=== PATIENT | female | born 1935 | race Caucasian/White ===

== ENCOUNTER 2020-06-01 13:58 | Inpatient (IN) | payer MEDICARE, SELFPAY ==
[~2020-06-01 13:58] MED LIST: Iopamidol 370 76% 100 ML VIAL ONE
[2020-06-01] MEDS ORDERED: Diltiazem 125 MG/25 ML ONE (14:27)
[2020-06-01 14:32] LABS: #Eosinphils 0.1 thou/uL (0.0-0.7); #Lymphocytes 1.6 thou/uL (1.20-3.40); #Monocytes 1.2 thou/uL (0.11-0.59); #Neutrophils 9.4 thou/uL (1.40-6.50); %Basophils 0.2 % (0.0-1.0); %Eosinophils 1.2 % (0.0-10.0); %Lymphocytes 12.6 % (21.0-51.0); %Monocytes 9.7 % (0.0-10.0); %Neutrophils 76.3 % (42.0-75.0); Hemoglobin 10.8 g/dL (12.0-16.0); Mean Corpuscular HGB CONC 32.8 g/dL (32.0-36.0); Mean Corpuscular Hemoglobin 29.5 pg (27.0-31.0); Mean Corpuscular Volume 89.9 fL (78.0-98.0); RBC Distribution Width 12.3 % (11.5-14.5); Red Blood Cell (RBC) Count 3.65 mill/uL (4.20-5.40); White Blood Cell (WBC) Count 12.3 thou/uL (4.8-10.8)
--- NOTE | 2020-06-01 14:49 | RAD ---
EXAM: Chest one view: HISTORY: Status post hip replacement, hypotensive, shortness of breath, history of atrial fib COMPARISON: 06/01/2020 FINDINGS: Very poor inspiration with right hemidiaphragm elevation more prominent than on prior earlier exam. Heart size: Within normal limits. Lungs: Clear of acute process. No evidence for confluent pneumonia, pleural effusion, acute edema, or pneumothorax, or other signifi cant acute process. IMPRESSION: No significant acute intrathoracic disease. Worsening inspiration otherwise stable.
[2020-06-01 14:54] LABS: MDiff Complete? YES; Mean Platelet Volume 11.3 fL (7.4-10.4); Platelet Clumps MODERATE; Platelet Morphology Comment PLT clumps seen-ADEQ; Polychromasia SLIGHT = 2-3 cells (100X) (0-2/hpf)
[2020-06-01] MEDS ORDERED: Metoclopramide HCl 10 MG/2 ML VIAL ONE (15:09)
[2020-06-01] MEDS ORDERED: diphenhydrAMINE 50 MG/ML VIAL ONE (15:10)
--- NOTE | 2020-06-01 15:17 | CT ---
EXAM: CT angiogram of the chest including 3-D rendering: HISTORY: Hypotensive shortness of breath COMPARISON: None FINDINGS: There is adequate opacification of the pulmonary arteries. Some generalized aortic ectasia involving the arch and descending aorta No convincing CT evidence for acute pulmonary embolism. Evidence for some bilateral bullous emphysema changes with some linear interstitial bilateral parench ymal changes particularly pleural-based changes with some minimal bilateral pleural thickening. No evidence for mediastinal mass or adenopathy. No evidence for pleural or pericardial effusion. Evidence for small hypertrophic partially visualized left kidney. Severe thoracic spine spondylosis IMPRESSION: No convincing CT evidence for acute pulmonary embolism. Evidence for some bullous emphysema changes and scattered linear and interstitial including pleural-b ased chronic appearing changes and some pleural thickening.
[2020-06-01] MEDS ORDERED: Magnesium 2 GM/50 ML BAG (IN WATER) ONE (15:33)
[2020-06-01 15:36] LABS: ALT (SGPT) 17 U/L (8-55); AST (SGOT) 17 U/L (5-34); Albumin 3.2 g/dL (3.4-4.8); Alkaline Phosphatase 105 U/L (40-110); Anion Gap 11 mmol/L (10-20); BUN (Urea Nitrogen) 26 mg/dL (9.8-20.1); Bilirubin, Total 0.9 mg/dL (0.2-1.2); Calc. Creatinine Clearance 0 mL/min (70-130); Calcium 8.3 mg/dL (7.8-10.44); Carbon Dioxide 27 mmol/L (23-31); Chloride 98 mmol/L (98-107); Estimated GFR-MDRD 29; Globulin 3.5 g/dL (2.4-3.5); Glucose 143 mg/dL (83-110); Potassium 4.5 mmol/L (3.5-5.1); Protein, Total 6.7 g/dL (6.0-8.3); Sodium 131 mmol/L (136-145)
[2020-06-01 15:38] LABS: CKMB 2.5 ng/mL (0-6.6)
[2020-06-01 16:05] LABS: INR-International Normal Ratio 1.1; PTT 37.6 sec (22.9-36.1); Prothrombin Time 13.8 sec (12.0-14.7)
[2020-06-01] MEDS ORDERED: Aspirin 325 MG TAB ONE ×2 (16:27→18:21)
[2020-06-01] MEDS ORDERED: Ondansetron PF 4 MG/2 ML Vial IVP PRN (16:45)
[2020-06-01] MEDS ORDERED: HYDROcodone/Acetaminophen 5/325 mg Tablet PO SCH (18:00)
[2020-06-01 21:05] LABS: CKMB 3.5 ng/mL (0-6.6)
[2020-06-01] MEDS ORDERED: Sodium Chloride 0.9% 250 ML IV SCH ×2 (21:45→22:15)
[2020-06-01 22:07] VITALS: BMI 32.8
[2020-06-01] MEDS ORDERED: Ipratropium Bromide 2.5 ml Neb NEB SCH (23:15)
[2020-06-01] MEDS ORDERED: Apixaban 2.5 MG TAB PO SCH (23:15)
--- NOTE | 2020-06-01 23:20 | HP ---
CHIEF COMPLAINT: Transferred from the rehab due to hypotension and new atrial fibrillation. HISTORY OF PRESENT ILLNESS: The patient is an 85-year-old female with past medical history of peripheral vascular disease, rheumatoid arthritis, COPD, hypertension , and chronic kidney disease, who recently underwent a hip replacement procedure and was discharged to the Rehab. The patient was transferred to the ER from the Rehab today due to hypotension and tachycardia. EKG revealed atrial fibrillation with rapid ventricular response. The patient was placed on a diltiazem drip and referred to us for admission. At this time, the patient denies any chest pain, shortness of breath, or dizziness, but she does endorse feeling weak and having fast heartbeats. The patient denied any history of irregular heartbeat in the past. REVIEW OF SYSTEMS: Negative except as noted in HPI. PAST MEDICAL HISTORY: As noted above. PAST SURGICAL HISTORY: Include hip replacement, cataract surgery, cholecystectomy, hysterectomy, mastectomy for breast cancer, and left knee and shoulder surgeries. SOCIAL HISTORY: The patient denies alcohol or illicit drug use. PHYSICAL EXAMINATION: GENERAL: The patient is alert and oriented x3. HEENT: Head is normocephalic and atraumatic. Extraocular muscles are intact. NECK: Supple. CHEST: Clear to auscultation bilaterally. CARDIOVASCULAR: Examination revealed irregular rhythm with mild tachycardia. ABDOMEN: Soft, nontender, nondistended. No peripheral edema is noted. NEUROLOGIC: Examination has been unremarkable. ASSESSMENT: 1. No onset of atrial fibrillation with rapid ventricular response. 2. Hypertension. 3. Asthma. 4. Rheumatoid arthritis. 5. Peripheral vascular disease. 6. Acute kidney injury on chronic kidney disease. PLAN: The patient will be placed in telemetry unit. She is currently on diltiazem drip. I will start metoprolol succinate 50 mg orally twice daily to achieve rate control and wean her off diltiazem. Her CHADS-VASc score is elevated, which means her risk of CVA is also increased. I will start the patient on anticoagulation with Eliquis 2.5 mg orally twice daily given her kidney function and her age. Consult Cardiology. Start IV fluids due to MIGUEL ÁNGEL and check her BMP in the a.m. Job ID: [id number] MTDD
[2020-06-02] MEDS: Sodium Chloride 0.9% 1,000 ML IV SCH ×4 (00:18→16:48)
[2020-06-02] MEDS: Acetaminophen 325 MG TAB PO PRN ×2 (00:38→08:44)
[2020-06-02 01:07] LABS: Bacteria/HPF None Seen HPF (None Seen); Bilirubin Negative (Negative); Blood, Urine Negative (Negative); Clarity Clear (Clear); Glucose, Urine (Dipstick) Normal (Negative); Ketone, Urine Negative (Negative); Leukocyte 25 Leu/uL (Negative); Nitrite Negative (Negative); Protein, Urine (Dipstick) 10 mg/dL (Neg-Trace); RBC/HPF 0-3 HPF (0-3); Specific Gravity, Urine 1.034 (1.002-1.036); Squamous Epithelial 0-3 HPF (0-3); Urobilinogen Normal mg/dL (Less than 2); pH, Urine 5.5 (5.0-9.0)
[2020-06-02 01:09] LABS: Urine Culture Reflex Yes Yes
[2020-06-02] MEDS: Ipratropium Bromide 2.5 ml Neb NEB SCH ×5 (02:18→19:24)
[2020-06-02 07:59] LABS: #Eosinphils 0.3 thou/uL (0.0-0.7); #Lymphocytes 1.6 thou/uL (1.20-3.40); #Neutrophils 5.3 thou/uL (1.40-6.50); %Basophils 0.3 % (0.0-1.0); %Lymphocytes 19.1 % (21.0-51.0); %Monocytes 11.7 % (0.0-10.0); %Neutrophils 64.9 % (42.0-75.0); Hemoglobin 9.3 g/dL (12.0-16.0); Mean Corpuscular HGB CONC 32.6 g/dL (32.0-36.0); Mean Corpuscular Hemoglobin 30.1 pg (27.0-31.0); Mean Corpuscular Volume 92.4 fL (78.0-98.0); Mean Platelet Volume 9.3 fL (7.4-10.4); Platelet Count 172 thou/uL (130-400); RBC Distribution Width 12.4 % (11.5-14.5); Red Blood Cell (RBC) Count 3.08 mill/uL (4.20-5.40); White Blood Cell (WBC) Count 8.2 thou/uL (4.8-10.8)
[2020-06-02 08:18] LABS: Anion Gap 12 mmol/L (10-20); BUN (Urea Nitrogen) 28 mg/dL (9.8-20.1); Calc. Creatinine Clearance 36 mL/min (70-130); Carbon Dioxide 21 mmol/L (23-31); Chloride 105 mmol/L (98-107); Estimated GFR-MDRD 35; Glucose 132 mg/dL (83-110); Potassium 4.9 mmol/L (3.5-5.1); Sodium 133 mmol/L (136-145)
[2020-06-02] MEDS ORDERED: Apixaban 2.5 MG TAB PO SCH (09:00)
[2020-06-02] MEDS ORDERED: Sodium Chloride 0.9% 1,000 ML IV SCH (10:30)
--- NOTE | 2020-06-02 17:23 | CON ---
DATE OF CONSULTATION: HISTORY OF PRESENT ILLNESS: Jerir Arriaga is an 85-year-old white female who recently underwent elective hip replacement Dr. Cervantes at [facility]. Preoperatively, she stated that Dr. Plummer performed a chemical stress test on her and told her everything was doing well. She then was transferred to rehab hospital and noted that she was hypotensive and had a rapid heart rate and was sent to the emergency room. There, she was found to be in atrial fibrillation. She underwent chest CTA, which revealed no evidence of pulmonary embolism. She does have some bullous emphysematous changes and pleural thickening. In the emergency room, blood pressure was 92/67 with pulse of 75, although at times it would go up to 150/ minute. She was placed on intravenous Cardizem and converted to sinus rhythm. With conversion, she had a 5.2-second pause. She denies any palpitations or weakness with this arrhythmia. She denies any palpitations in the past. She denies any history of syncope or lightheadedness. She has no chest pain or shortness of breath. PAST MEDICAL HISTORY: 1. Rheumatoid arthritis. 2. Peripheral vascular disease. 3. COPD. 4. Hypertension. 5. Chronic kidney disease. 6. History of breast cancer. 7. Thrombocytopenia. SOCIAL HISTORY: She smoked, but stopped over 40 years ago. She does not drink. MEDICATIONS: 1. Amlodipine 5 mg daily. 2. Clonidine 0.1 mg q.6 h. p.r.n. 3. Famotidine 20 mg daily. 4. Enoxaparin 30 mg daily. 5. Zolpidem 5 mg daily. In the emergency room, she received diltiazem 10 mg bolus, then 5 mg/hour, magnesium 2 g, another 10 mg of diltiazem 1 L of normal saline, 325 mg aspirin, and then another 10 mg intravenously. She was placed on continuous infusion of diltiazem. ALLERGIES: PENICILLIN, HYDROCODONE, AND MORPHINE. PAST SURGICAL HISTORY: 1. Elective hip replacement recently. 2. Cataract surgery. 3. Cholecystectomy. 4. Hysterectomy. 5. Mastectomy for breast cancer. 6. Left knee surgery. 7. Shoulder surgeries. REVIEW OF SYSTEMS: Ten-point review of systems is otherwise unremarkable. PHYSICAL EXAMINATION: VITAL SIGNS: Blood pressure 115/58 and pulse 56. HEENT: PERRL. NECK: Supple. CHEST: Clear. CARDIAC: S1 and S2 are normal without any S3, S4, or murmurs. ABDOMEN: Normal bowel sounds without tenderness or organomegaly. EXTREMITIES: No clubbing, cyanosis, or edema. NEUROLOGIC: Grossly intact. SKIN: Warm and dry. LABORATORY DATA: EKG revealed atrial fibrillation with rapid ventricular response of 145 per minute, right bundle-branch block. Hemoglobin 9.3, hematocrit 28.5, white count 8200, and platelets 172,000. Sodium 133, potassium 4.9, chloride 105, carbon dioxide 21, BUN 28, and creatinine 1.42. Troponin I 0.305. IMPRESSION: 1. New onset atrial fibrillation, which converted to sinus rhythm with high-dose diltiazem. 2. Mhg-OE-onwlxyypf myocardial infarction, type 2. 3. Prolonged 5.2-second pause when she converted to sinus rhythm, which was asymptomatic and she does not have any symptoms of lightheadedness or dizziness at home. No history of falls at home. 4. Hypertension. 5. Rheumatoid arthritis. 6. History of breast cancer. 7. Chronic obstructive pulmonary disease. 8. Former smoker. 9. Chronic kidney disease. 10. Peripheral vascular disease. RECOMMENDATIONS: I agree with anticoagulation with Eliquis 2.5 mg b.i.d. Echocardiogram will be performed to assess left ventricular function. She has been started on a beta-ya. If she continues to remain in sinus rhythm, consideration could be given to transfer back to rehab. At the present time, her vital signs are stable after she received 1 L of fluid in the emergency room. Job ID: [id number] MTDD
[2020-06-02 20:12] VITALS: BP 126/57; TEMP 98.6
--- NOTE | 2020-06-05 12:25 | DIS ---
DATE OF ADMISSION: 06/01/2020 DATE OF DISCHARGE: 06/02/2020 DISCHARGE DIAGNOSES: 1. New onset atrial fibrillation with rapid ventricular response. 2. Hypotension. 3. Asthma. 4. Acute kidney injury with unknown baseline creatinine. DISCHARGE MEDICATIONS: 1. Eliquis 2.5 mg orally twice daily. 2. Toprol-XL 75 mg orally daily. 3. Tylenol 325 mg orally q.4 hours as needed for pain. 4. Tylenol No. 3 one tablet orally q.4 hours as needed for pain. 5. Aspirin 81 mg orally daily. 6. Atorvastatin 10 mg orally nightly. 7. Benzocaine/menthol sore throat lozenge one orally twice daily as needed for cough. 8. Bisacodyl 10 mg orally daily as needed for constipation. 9. Calcium carbonate 500 mg q.6 hours as needed for indigestion. 10. Vitamin D3 2000 units orally daily. 11. Benadryl 25 mg orally q.6 hours as needed for itching. 12. Famotidine 20 mg orally daily. 13. Ferrous sulfate 325 mg orally twice daily. 14. Guaifenesin-dextromethorphan 100 mg-10 mg per 5 mL, the patient will take 10 mL q.4 hours as needed for cough. 15. DuoNeb nebulized q.4 hours as needed for shortness of breath or wheezing. 16. Lactulose 1 UD cup orally t.i.d. as needed for constipation. 17. Loperamide 2 mg orally q.8 hours as needed for diarrhea. 18. Ambien 5 mg orally nightly as needed for insomnia. HISTORY OF PRESENT ILLNESS AND HOSPITAL COURSE: The patient is an 85-year-old female with past medical history of COPD and asthma, hypertension, chronic kidney disease, and peripheral vascular disease, who was sent to the hospital from her rehab facility, where she was recuperating after recent hip replacement. The patient was sent to the hospital for tachycardia and hypotension. EKG revealed atrial fibrillation with rapid ventricular response of new onset. The patient was managed with rate control strategy and her rate was controlled using metoprolol succinate. The patient was started on anticoagulation with Eliquis given her elevated CHADS-VASc score. She was also managed with IV hydration, which led to improvement in her blood pressure and some improvement in her creatinine level. At this time, the patient is stable to go back to rehab and continue her regular management. Of note, her troponin level was slightly elevated and peaked at 0.3. This is likely due to demand ischemia from her fast heart rate. The patient denies any chest pain. Job ID: [id number]
== END 2020-06-02 20:00 | DRG 281 ==
LOC: ERS 13:58 → 2SE 16:18
PROVIDERS: ADMIT Internal Medicine; ATTEND Internal Medicine
DX: I48.91 Unspecified atrial fibrillation (principal); I21.A1 Myocardial infarction type 2; N17.9 Acute kidney failure, unspecified; I12.9 Hypertensive chronic kidney disease with stage 1 through stage 4 chronic kidney disease, or unspecified chronic kidney disease; N18.3 Chronic kidney disease, stage 3 (moderate); J44.9 Chronic obstructive pulmonary disease, unspecified; Z96.649 Presence of unspecified artificial hip joint; I73.9 Peripheral vascular disease, unspecified; M06.9 Rheumatoid arthritis, unspecified; D69.6 Thrombocytopenia, unspecified; Z88.6 Allergy status to analgesic agent; Z88.0 Allergy status to penicillin; Z79.01 Long term (current) use of anticoagulants; Z85.3 Personal history of malignant neoplasm of breast; Z98.42 Cataract extraction status, left eye; Z98.41 Cataract extraction status, right eye; Z90.49 Acquired absence of other specified parts of digestive tract; Z90.710 Acquired absence of both cervix and uterus; Z87.891 Personal history of nicotine dependence
CPT/HCPCS: 36415; 71045; 71275; 80048; 81001; 82553; 84484; 85025; 85610; 85730; 93005; 93306; 94640; 96365; 96366; 96368; 96376; 99292; J1200; J2765; J3475